=== PATIENT | female | born 1960 | race Caucasian/White ===

== ENCOUNTER 2018-10-13 05:03 | Inpatient (IN) ==
--- NOTE | 2018-09-10 13:46 | PAT Medication Instructions ---
Medication Instructions Date of Service September 10, 2018 Home Medications atorvastatin 20 mg PO PM cyclobenzaprine 10 mg PO DAILY PRN hydrocodone-acetaminophen 1 tab PO Q6H PRN metoprolol tartrate 1.5 tab PO BID multivitamin 1 tab PO QAM ranitidine HCl [Zantac] 150 mg PO HS triamterene-hydrochlorothiazid 1 tab PO QAM DO NOT take the morning of surgery cyclobenzaprine 10 mg PO DAILY PRN multivitamin 1 tab PO QAM triamterene-hydrochlorothiazid 1 tab PO QAM Take morning of surgery With a small sip of water, OTHERWISE NOTHING TO EAT OR DRINK AFTER MIDNIGHT: hydrocodone-acetaminophen 1 tab PO Q6H PRN (okay to take up to 4 hours prior to surgery if needed) metoprolol tartrate 1.5 tab PO BID Take evening before surgery atorvastatin 20 mg PO PM cyclobenzaprine 10 mg PO DAILY PRN (if needed) hydrocodone-acetaminophen 1 tab PO Q6H PRN (if needed) metoprolol tartrate 1.5 tab PO BID ranitidine HCl [Zantac] 150 mg PO HS Other Notes If you have any questions please call us at [phone] or [phone] or [phone] or [phone]
--- NOTE | 2018-09-11 09:09 | Anesthesiology Consultation ---
Date of Service September 11, 2018 Assessment & Plan (1) Encounter for pre-operative examination: Chart Review Chart Review: Acceptable Risk for Surgery and Patient seen in Pre Admission Testing Teaching & Discussion Pre-Anesthesia Teaching/Discussion Notes: Instructed NPO after midnight before surgery,except medications with 15 cc of water. Medication instructions provided according to the PAT guidelines. History Surgery Operation Date: 10/09/18 07:00 Proposed Procedures p Right Total Knee Arthroplasty - Russ Montoya MD Height/Weight Height: 5 ft 9 in Weight: 100.8 kg Allergies Allergy/AdvReac Type Severity Reaction Status Date / Time No Known Allergies Allergy Unverified 09/08/18 08:55 Medications Home Medications Medication Instructions Recorded Confirmed Last Taken atorvastatin 20 mg PO PM 09/08/18 09/08/18 Unknown cyclobenzaprine 10 mg PO DAILY PRN 09/08/18 09/08/18 Unknown hydrocodone-acetaminophen 1 tab PO Q6H PRN 09/08/18 09/08/18 Unknown metoprolol tartrate 1.5 tab PO BID 09/08/18 09/08/18 Unknown multivitamin 1 tab PO QAM 09/08/18 09/08/18 Unknown ranitidine HCl [Zantac] 150 mg PO HS 09/08/18 09/08/18 Unknown triamterene-hydrochlorothiazid 1 tab PO QAM 09/08/18 09/08/18 Unknown [Maxzide-25mg] Past Medical History Medical History History of blood transfusion 12/2017 POST OP Anemia Anxiety CKD (chronic kidney disease) STAGE III Chronic back pain Degenerative disc disease GERD (gastroesophageal reflux disease) OCCASIONAL History of palpitations Hyperlipidemia Hypertension Osteoarthritis Past Surgical History Surgical History History of appendectomy History of arthroscopy RIGHT KNEE History of cholecystectomy LAP History of colonoscopy History of lumbar fusion L4-S1 decompression/fusion= 08/10/16= Grade view 3, MAC 3, ETT [address] [facility] History of tonsillectomy and adenoidectomy History of total abdominal hysterectomy and bilateral salpingo-oophorectomy Hx of section X2 Hx of fusion of cervical spine C3-C5 Hx of laparoscopic gastric banding 2009 (S/P 50+ POUND WEIGHT LOSS) Past Anesthesia History No Hx of Anesthesia Complications and No Family Hx of Anesthesia Complications History of PONV No Motion Sickness Screening History of Motion Sickness: Yes Social History Smoking Status: Former smoker Do You Dip or Chew Tobacco: No Smoking End Date: QUIT 1997 Hx Alcohol Use: Yes alcohol intake frequency: holidays/special occasions only Hx Substance Use: No substance use type: does not use Exercise / Class Metabolic Activity II 4-5 Yardwork/Stairs/Walk up hill Review of Systems Occasional reflux. Patient denies chest pain, shortness of breath, dyspnea on exertion, cough, wheezing, palpitations. Physical Exam Vital Signs VITALS BP 131/83 P 65 TEMP 98.4 SP02 95%RA RESP 18 Full neck and c-spine range of motion. Full TMJ range of motion. TMD 3 finger breaths Mallampati Score 2 Dentition: intact, upper front cap Lungs: clear throughout to auscultation Cardiac: regular rate and rhythm, no murmurs noted, distant heart sounds Spine: normal Carotid arteries: negative bruit Extremities: no edema Testing Electrocardiogram Date: 08/13/18 SR at 60bpm. Chest X-Ray Date: 12/17/17 Findings: + NAD Echocardiogram Date: 05/30/18 EF 60-65%. No significant valvular disease. Stress Test Date: 05/16/16 Type: nuclear Myocardial perfusion imaging "normal." Myocardial ischemia/infarct absent. EF 64 %. Laboratory Results 09/11/18 09:35 09/11/18 09:35 Blood Type O Positive 09/11/18 09:35 Antibody Screen NEGATIVE 09/11/18 09:35 PT 10.4 Seconds (9.0-12.0) 09/11/18 09:35 INR 1.0 (0.9-1.1) 09/11/18 09:35 APTT 30.6 Seconds (21.0-31.0) 09/11/18 09:35 Hemoglobin A1c 6.0 % (4.5-5.6) H 09/11/18 09:35 Urine Color Dark Yellow 09/11/18 Unknown Urine Appearance Clear (Clear) 09/11/18 Unknown Urine pH 7.0 (4.5-7.5) 09/11/18 Unknown Ur Specific [place] 1.026 (1.000-1.030) 09/11/18 Unknown Urine Protein Negative (Negative) 09/11/18 Unknown Urine Glucose (UA) Negative (Negative) 09/11/18 Unknown Urine Ketones Negative (Negative) 09/11/18 Unknown Urine Nitrite Negative (Negative) 09/11/18 Unknown Ur Leukocyte Esterase Negative (Negative) 09/11/18 Unknown
[2018-09-11 10:42] LABS: Appearance Urine Clear (Clear); Bilirubin Urine Negative (Negative); Blood Urine Negative (Negative); Color Urine Dark Yellow; Glucose Urine UA Negative (Negative); Ketones Urine Negative (Negative); Leukocyte Esterase Urine Negative (Negative); Nitrite Urine Negative (Negative); Protein Urine Negative (Negative); Specific Gravity Urine 1.026 (1.000-1.030); Urobilinogen Urine Negative (Negative)
[2018-09-11 10:49] LABS: Basophils # (auto) 0.04 K/uL (0-0.2); Basophils % (auto) 0.8 %; Eosinophils % (auto) 4.2 %; Hematocrit (blood only) 40.3 % (37-47); Hemoglobin 13.6 g/dL (12.0-16.0); Immature Granulocytes # (auto) 0.01 K/uL (0.00-0.02); Immature Granulocytes % (auto) 0.2 %; Lymphocytes # (auto) 1.82 K/uL (1.2-3.4); Lymphocytes % (auto) 38.1 %; Mean Corpuscular Hgb Conc 33.7 g/dL (32-36); Mean Corpuscular Volume 90.4 fL (80-100); Mean Platelet Volume 10.3 fL (7.4-10.4); Monocytes # (auto) 0.68 K/uL (0.11-0.59); Monocytes % (auto) 14.2 %; Neutrophils # (auto) 2.03 K/uL (1.4-6.5); Neutrophils % (auto) 42.5 %; Platelet Count 198 K/uL (130-400); RDW Coefficient of Variation 13.2 % (11.5-14.5); RDW Standard Deviation 43.3 fL (36.4-46.3); Red Blood Count 4.46 M/uL (4.2-5.4); White Blood Count 4.78 K/uL (4.8-10.8)
[2018-09-11 10:59] LABS: Albumin Level 3.7 gm/dl (3.4-5.0); BUN Creatinine Ratio 21.2 (10-20); Calcium 9.7 mg/dl (8.5-10.1); Est GFR (African American) 70.2; Est GFR (Non-African American) 60.6; Potassium 3.9 mmol/L (3.5-5.1)
[2018-09-11 11:08] LABS: Partial Thromboplastin Ratio 1.2; Partial Thromboplastin Time 30.6 Seconds (21.0-31.0); Prothrombin Time 10.4 Seconds (9.0-12.0)
[2018-09-11 12:53] LABS: Estimated Average Glucose 126 mg/dl
--- NOTE | 2018-10-10 11:58 | History and Physical Report ---
DATE OF ADMISSION: 10/13/2018 CHIEF COMPLAINT: Right knee pain. HISTORY OF PRESENT ILLNESS: The patient is a 58-year-old female seen and evaluated for chronic right knee pain. She is on chronic hydrocodone for her pain. She does have other conservative care by her primary care physician and continues to have pain and disability and now desires to proceed with right total knee arthroplasty. PAST MEDICAL HISTORY: Hypertension, stage III chronic kidney disease, chronic back pain, iron deficiency anemia, gastritis, sleep apnea, obesity. PAST SURGICAL HISTORY: Appendectomy, cholecystectomy, tonsillectomy, cervical discectomy, lumbar spine fusion, hysterectomy. MEDICATIONS: Metoprolol tartrate 25 mg 1-1/2 tablets twice daily, Maxzide 37.5/25 daily, hydrocodone q. 4 hours p.r.n. pain, atorvastatin calcium 20 mg daily, Centrum Silver adult multivitamin daily, cyclobenzaprine HCL 10 mg p.r.n., vitamin D 2000 units daily, ranitidine HCL 50 mg daily. ALLERGIES: Unknown. SOCIAL HISTORY/REVIEW OF SYSTEMS: She is . She works at a desk job. Denies current alcohol, tobacco use. PHYSICAL EXAMINATION: GENERAL: Well-nourished, well-developed, obese female who appears her stated age. HEENT: Normocephalic, atraumatic, extraocular movements intact, oropharynx pink and moist. NECK: Supple without adenopathy. LUNGS: Clear to auscultation bilaterally. HEART: Regular rate and rhythm. ABDOMEN: Soft, nontender, nondistended, obese. EXTREMITIES: The upper extremity within normal limits. The right knee has a valgus alignment. She complains primarily of lateral compartment pain. Her range of motion is approximately 0-120 degrees. X-RAYS: X-rays were reviewed. She has a valgus aligned knee. She has bone on bone arthritis of the lateral compartment. She has moderate degenerative changes about the patellofemoral joint with osteophytes as well. ASSESSMENT: Right knee degenerative joint disease. PLAN: Risks versus benefits were discussed. Consent was obtained. Will proceed with right total knee arthroplasty as indicated.
[2018-10-13] MEDS ORDERED: METOCLOPRAMIDE HCL 10 MG TABLET PO SCH (06:00)
[2018-10-13] MEDS ORDERED: ACETAMINOPHEN 500 MG TAB PO SCH (06:00)
[2018-10-13] MEDS ORDERED: GABAPENTIN 300 MG x 2 PO SCH (06:00)
[2018-10-13] MEDS ORDERED: dexAMETHasone 4 MG TAB PO SCH (06:00)
[2018-10-13] MEDS ORDERED: TRANEXAMIC ACID 1,000 MG **IV Pre-op IV SCH (06:00)
[2018-10-13] MEDS ORDERED: CeleBREX 200 MG CAP PO SCH (06:00)
[2018-10-13] MEDS ORDERED: CEFAZOLIN 2000MG 2,000 MG/15 ML SYR IV SCH (06:00)
[2018-10-13] MEDS ORDERED: LR 500ML BOLUS, THEN 15ML/HR IV SCH (06:00)
[2018-10-13] MEDS ORDERED: FAMOTIDINE 20 MG TAB PO SCH (06:00)
[2018-10-13] MEDS ORDERED: ORTHO JOINT ANESTHETIC ONE (06:26)
[2018-10-13] MEDS ORDERED: POVIDONE-IODINE OP SOLN 30 ML BTL ONE (06:26)
[2018-10-13] MEDS ORDERED: BACITRACIN INJ 50,000 UNIT VIAL ONE (06:26)
[2018-10-13] MEDS ORDERED: ROPIVACAINE 0.5% 5 MG/ML 30 ML VIAL ONE (06:28)
[2018-10-13] MEDS ORDERED: BUPIVACAINE 0.5 % 5 MG/1 ML PF 10ML VIAL ONE (06:28)
[2018-10-13] MEDS ORDERED: TRANEXAMIC ACID 1,000 MG **IV Intra-op IV SCH (06:30)
[2018-10-13] MEDS ORDERED: PHENYLEPHRINE 100MCG/ML 5ML SYR IV PRN (06:45)
[2018-10-13] MEDS ORDERED: fentaNYL citrate 100 MCG/2 ML VIAL ONE (06:45)
[2018-10-13] MEDS ORDERED: fentaNYL citrate 100 MCG/2 ML VIAL IV PRN (06:45)
[2018-10-13] MEDS ORDERED: ePHEDrine sulfate 50 MG/ML AMP IV PRN (06:45)
[2018-10-13] MEDS ORDERED: PROMETHAZINE HCL 12.5 MG in SODIUM CHLORIDE 0.9% 50 ML IV PRN (06:45)
[2018-10-13] MEDS ORDERED: HYDROmorphone INJ 1 MG/ML SYRINGE IV PRN ×2 (06:45→10:32)
[2018-10-13] MEDS ORDERED: MIDAZOLAM HCL 1 MG/ML 2ML VIAL ONE ×2 (06:45→07:38)
[2018-10-13] MEDS ORDERED: ONDANSETRON INJ 2 MG/ML 2 ML VIAL IV PRN ×2 (06:45→10:32)
[2018-10-13] MEDS ORDERED: ATROPINE SULFATE 0.1 MG/ML 10ML SYR IV PRN (06:45)
[2018-10-13] MEDS ORDERED: ACETAMINOPHEN 1,000 MG/100 ML VIAL IV ONE (06:45)
[2018-10-13] MEDS ORDERED: EPINEPHrine INJ 1 MG/ML AMP ONE (07:01)
--- NOTE | 2018-10-13 07:07 | History & Physical Bridge Note ---
Date of Service October 13, 2018 History & Physical Bridge Note I have examined the patient, reviewed the History & Physical and in the interval since the performance of the History & Physical I have noted the following changes of clinical significance: no changes noted
[2018-10-13] MEDS: ROPIVACAINE 0.5% HCL/PF 150 MG, BUPIVACAINE 0.5% MPF 30 ML, EPINEPHrine 30MG/30ML (OR U... INFIL SCH ×2 (07:56→08:36)
[2018-10-13] MEDS ORDERED: ONDANSETRON INJ 2 MG/ML 2 ML VIAL ONE (08:02)
[2018-10-13] MEDS ORDERED: PROPOFOL IV EMULSION 10 MG/ML 20 ML VIAL IV ONE (08:02)
[2018-10-13] MEDS ORDERED: LIDOCAINE HCL 2% 2 ML VIAL/AMP(20MG/ML) INFIL ONE (08:02)
[2018-10-13] MEDS ORDERED: DEXAMETHASONE SOD INJ 4 MG/ML VIAL ONE (08:02)
--- NOTE | 2018-10-13 08:30 | Operative Report ---
Post Operative Report Pre & Post Diagnosis Operation Date: 10/13/18 07:00 Pre-Op Diagnosis: Right Knee Osteoarthritis Post-Op Diagnosis: Right Knee Osteoarthritis Procedure Operation Date: 10/13/18 07:00 Actual Procedures p Right Total Knee Arthroplasty(Right) - Russ Montoya MD Surgeon Russ Montoya MD Vocational Rehabilitation Teacher Franca Estimated Blood Loss 10 Findings Consistent with Post-Op Diagnosis Specimens Bone fragments Complications none Disposition Accompanied Patient To Recovery: No Disposition: Recovery Room Indications Knee pain Description of Procedure The patient's right leg was prepped and draped in the usual sterile manner. The limb was exsanguinated with an Esmarch bandage and tourniquet was inflated to 325 mmHg. Longitudinal incision made subcutaneous tissue was sharply dissected electrocautery used for hemostasis. Medium parapatellar incision was made the patella was everted and the knee was flexed. The medial face the tibia was with electrocautery and the proximal tibia was osteotomized in the oscillating saw. Next was turned to the distal femur where a drill was used to gain access to the femoral canal. Intramedullary alignment guide was placed in the distal femur was cut. A size 5 femoral component was chosen size to be used. The chamfer cuts were made to the notch was cut and after removal of all excess of meniscal tissue the trial femur was impacted in position. Blunt Hohmann was used to present the tibia. Size 4 tibial component was chosen. The proximal tibia was prepared in the trial tibia was placed. A size 16 poly-was chosen. Next the patella was reamed to a size 36 patella was chosen. The knee was taken through full range of motion and the patella tracked nicely all trials were removed the knee was thoroughly irrigated joint mix was injected cement was mixed and the final components were cemented in position. Knee was held in extension while cement hardened. The extensor mechanism was closed after utilizing a Betadine soap over Hemovac drain. Retention tissue was closed using 0 Dexon and the skin was closed was applied. Sterile dressing of Adaptic 4 x 4's sterile web roll was APPLIED. Cortez was utilized to all portions of the procedure including prepping draping surgical assistance wound closure and dressing application. I attest to the content of the Intraoperative Record and any orders documented therein. Any exceptions are noted below.
[2018-10-13] MEDS ORDERED: ROPIVACAINE/NSS 0.2% 250 ML PUMP INFIL PRN (09:15)
--- NOTE | 2018-10-13 10:24 | XRay Report ---
XR knee RT 2V routine CLINICAL HISTORY: post-op joint replacement COMPARISON: None. DISCUSSION: Anatomic alignment post total right knee arthroplasty. Good contact between prosthetic an d underlying bone. Expected postoperative soft tissue change IMPRESSION: Anatomic alignment post total right knee arthroplasty. The above report was generated using voice recognition software. It may contain grammatical, syntax or spelling errors. Electronically signed by: Uri Earl M.D. 10/13/2018 10:22 AM
--- NOTE | 2018-10-13 10:27 | Anesthesiology Progress Note ---
Date of Service October 13, 2018 Anesthesia Post Procedure Vital Signs Vital Signs: Temp Pulse Pulse Resp BP Pulse Ox 10/13/18 10:20 72 14 106/64 98 10/13/18 10:10 36.4 C L 62 12 110/59 L 99 10/13/18 10:00 65 16 112/62 100 10/13/18 09:50 64 12 106/55 L 100 10/13/18 09:40 61 14 111/61 100 10/13/18 09:30 61 12 113/55 L 100 10/13/18 09:20 63 12 107/61 100 10/13/18 09:10 69 14 112/61 100 10/13/18 09:03 36.3 C L 72 17 110/55 L 100 10/13/18 05:44 37 C 78 20 160/95 H 95 Notes Mental Status: alert / awake / arousable Patient Amnestic to Procedure: Yes Nausea / Vomiting: adequately controlled Pain: adequately controlled Airway Patency, RR, SpO2: stable & adequate BP & HR: stable & adequate Hydration State: stable & adequate Neuraxial Anesthesia: was administered and sensory block is resolving Anesthetic Complications: no major complications apparent and Pt Satisfied with anesthetic care Notes: The patient has a femoral nerve catheter with a pain pump attached. She feels well.
[2018-10-13] MEDS ORDERED: NALOXONE HCL 0.4 MG/1 ML VIAL/CARP IV PRN (10:32)
[2018-10-13] MEDS ORDERED: MAGNESIUM HYDROXIDE SUSP 30 ML UDC PO PRN (10:32)
[2018-10-13] MEDS ORDERED: METOCLOPRAMIDE HCL INJ 5 MG/ML 2 ML VIAL IV PRN (10:32)
[2018-10-13] MEDS ORDERED: ALUMINUM/MAGNESIUM SUSP 30 ML UDC PO PRN (10:32)
[2018-10-13] MEDS ORDERED: BISACODYL 10 MG SUPP PR PRN (10:32)
[2018-10-13] MEDS: SODIUM CHLORIDE 0.9% 1000ML 1,000 ML IV SCH ×2 (11:11→20:21)
[2018-10-13] MEDS: ACETAMINOPHEN 500 MG TAB PO SCH ×2 (13:14→22:16)
[2018-10-13] MEDS: OXYCODONE HCL IR 5 MG TAB (IMMEDIATE RELEASE) PO PRN ×2 (13:15→22:16)
[2018-10-13] MEDS: CEFAZOLIN 2000MG 2,000 MG/15 ML SYR IV SCH (15:12)
[2018-10-13] MEDS: FERROUS GLUCONATE 324 MG TAB PO SCH (16:35)
[2018-10-13] MEDS: ASCORBIC ACID 500 MG TAB PO SCH (16:35)
[2018-10-13] MEDS: ATORVASTATIN 20 MG TAB PO SCH (20:17)
[2018-10-13] MEDS: ASPIRIN 81 MG ECTAB PO SCH (20:17)
[2018-10-13] MEDS: DOCUSATE SODIUM 100 MG CAP PO SCH (20:18)
[2018-10-13] MEDS: METOPROLOL TARTRATE 25 MG TAB PO SCH (20:18)
[2018-10-13] MEDS: SENNA 8.6 MG TAB PO SCH (20:18)
[2018-10-14] MEDS: CEFAZOLIN 2000MG 2,000 MG/15 ML SYR IV SCH (00:11)
[2018-10-14] MEDS: OXYCODONE HCL IR 5 MG TAB (IMMEDIATE RELEASE) PO PRN ×5 (03:01→23:23)
[2018-10-14 06:16] LABS: Hematocrit (blood only) 29.6 % (37-47); Mean Corpuscular Hgb Conc 33.8 g/dL (32-36); Mean Corpuscular Volume 88.6 fL (80-100); Mean Platelet Volume 9.2 fL (7.4-10.4); Platelet Count 193 K/uL (130-400); RDW Standard Deviation 42.3 fL (36.4-46.3); Red Blood Count 3.34 M/uL (4.2-5.4); White Blood Count 16.22 K/uL (4.8-10.8)
[2018-10-14] MEDS: ACETAMINOPHEN 500 MG TAB PO SCH ×3 (06:27→22:19)
[2018-10-14 06:44] LABS: BUN Creatinine Ratio 20.4 (10-20); Calcium 8.2 mg/dl (8.5-10.1); Creatinine Clr Calc Pharmacy 61.3 ml/min; Est GFR (African American) 53.9; Est GFR (Non-African American) 46.5
--- NOTE | 2018-10-14 07:44 | Orthopedic Progress Note ---
Date of Service October 14, 2018 Assessment & Plan (1) Status post right knee replacement: 58 yo female stable POD #1 s/p right TKA, elevated BUN/Cr(CKD), h/o pain management issues 1. Med management 2. DVT prophylaxis- ASA, SCDs 3. PT/OT 4. D/C planning- home w/ HH Subjective Pt resting in bed, pain controlled, denies complaints Physical Exam Vital Signs (Past 24 Hours): Last Vital Signs Temp 36.9 C 10/14/18 07:35 Pulse 67 10/14/18 07:35 Resp 16 10/14/18 07:35 BP 124/74 10/14/18 07:35 Pulse Ox 99 10/14/18 07:35 Physical Exam: Dressing/drain in place, toes mobile, femoral pain catheter in place Results & Data Laboratory Results 10/14/18 10/14/18 10/14/18 Range/Units 05:56 05:56 05:56 WBC 16.22 H (4.8-10.8) K/uL RBC 3.34 L (4.2-5.4) M/uL Hgb 10.0 L (12.0-16.0) g/dL Hct 29.6 L (37-47) % MCV 88.6 (80-100) fL MCH 29.9 (25-34) pg MCHC 33.8 (32-36) g/dL RDW Std Deviation 42.3 (36.4-46.3) fL RDW Coeff of Atilio 13.0 (11.5-14.5) % Plt Count 193 (130-400) K/uL MPV 9.2 (7.4-10.4) fL Sodium 139 (136-145) mmol/L Potassium 4.0 (3.5-5.1) mmol/L Chloride 108 H (98-107) mmol/L Carbon Dioxide 20 L (21-32) mmol/L Anion Gap 11.0 (3-11) BUN 26 H (7-18) mg/dl Creatinine 1.27 H (0.6-1.2) mg/dl Est Cr Clr Drug Dosing 61.3 ml/min Est GFR ( Amer) 53.9 Est GFR (Non-Af Amer) 46.5 BUN/Creatinine Ratio 20.4 H (10-20) Glucose 122 H (70-99) mg/dl Calcium 8.2 L (8.5-10.1) mg/dl Hepatitis C Ab Screen Pending
--- NOTE | 2018-10-14 07:56 | Anesthesiology Progress Note ---
Date of Service October 14, 2018 Anesthesia Post Procedure Vital Signs Vital Signs: Temp Pulse Pulse Pulse Pulse Resp BP 10/14/18 07:35 36.9 C 67 16 124/74 10/14/18 03:23 36.8 C 70 16 128/87 10/13/18 23:42 37.0 C 72 14 126/71 10/13/18 20:16 82 115/74 10/13/18 19:29 36.9 C 99 H 18 129/85 10/13/18 15:23 37 C 73 18 110/72 10/13/18 13:38 75 18 113/74 10/13/18 12:28 36.4 C L 69 18 113/74 10/13/18 11:28 36.3 C L 60 15 111/66 10/13/18 11:06 36.6 C 62 17 95/72 L 10/13/18 10:32 36.4 C L 64 16 110/71 10/13/18 10:20 72 14 106/64 10/13/18 10:10 36.4 C L 62 12 110/59 L 10/13/18 10:00 65 16 112/62 10/13/18 09:50 64 12 106/55 L 10/13/18 09:40 61 14 111/61 10/13/18 09:30 61 12 113/55 L 10/13/18 09:20 63 12 107/61 10/13/18 09:10 69 14 112/61 10/13/18 09:03 36.3 C L 72 17 110/55 L Pulse Ox 10/14/18 07:35 99 10/14/18 03:23 99 10/13/18 23:42 95 10/13/18 20:16 10/13/18 19:29 96 10/13/18 15:23 93 10/13/18 13:38 95 10/13/18 12:28 100 10/13/18 11:28 100 10/13/18 11:06 99 10/13/18 10:32 99 10/13/18 10:20 98 10/13/18 10:10 99 10/13/18 10:00 100 10/13/18 09:50 100 10/13/18 09:40 100 10/13/18 09:30 100 10/13/18 09:20 100 10/13/18 09:10 100 10/13/18 09:03 100 Notes Mental Status: alert / awake / arousable Patient Amnestic to Procedure: Yes Nausea / Vomiting: adequately controlled Pain: adequately controlled Airway Patency, RR, SpO2: stable & adequate BP & HR: stable & adequate Hydration State: stable & adequate Neuraxial Anesthesia: was administered and sensory block resolved Anesthetic Complications: no major complications apparent and Pt Satisfied with anesthetic care Notes: The patient had a R femoral nerve catheter placed prior to surgery due to her chronic opioid use. She had very good pain relief overnight and pushed for a bolus through the catheter several times. She continues to have some numbness and weakness over the top part of her knee secondary to the continous nerve block. I spoke to Bryon Schulte who would like to how the patient's pain tolerance would be without the femoral nerve catheter since she will be discharged to home tomorrow. I spoke to the patient about leaving it in until 1600 today, but she stated that she would like the catheter to be removed now so that she can see what her pain tolerance is and to regain motor function. The catheter was removed with tip intact. The insertion site had some minimal bruising where the needle was inserted but no redness, swelling, or bleeding. The patient is doing well.
[2018-10-14] MEDS ORDERED: dexAMETHasone 10 MG in SYRINGE 0 ML IV SCH (08:00)
[2018-10-14] MEDS: FERROUS GLUCONATE 324 MG TAB PO SCH ×2 (08:21→17:40)
[2018-10-14] MEDS: ASCORBIC ACID 500 MG TAB PO SCH ×2 (08:21→17:40)
[2018-10-14] MEDS: METOPROLOL TARTRATE 25 MG TAB PO SCH ×2 (08:22→20:20)
[2018-10-14] MEDS: ASPIRIN 81 MG ECTAB PO SCH ×2 (08:22→20:20)
[2018-10-14] MEDS: TRIAMTERENE/HCTZ 37.5/25MG TAB PO SCH (08:22)
[2018-10-14] MEDS: MULTIVITAMIN TAB PO SCH (08:22)
[2018-10-14] MEDS: DOCUSATE SODIUM 100 MG CAP PO SCH ×2 (08:23→20:21)
[2018-10-14] MEDS ORDERED: NON-FORMULARY MEDICATION (Multivitamin 1 TAB) PO SCH (09:00)
--- NOTE | 2018-10-14 09:31 | Anesthesiology Progress Note ---
Date of Service October 14, 2018 Pain control adequately controlled with femoral cath. Janak LANGSTON requesting dc of catheter. Dr. Abelardo Ugarte notified, into see patient. Anesthesia Post Procedure Vital Signs Vital Signs: Temp Pulse Pulse Pulse Pulse Resp BP 10/14/18 07:35 36.9 C 67 16 124/74 10/14/18 03:23 36.8 C 70 16 128/87 10/13/18 23:42 37.0 C 72 14 126/71 10/13/18 20:16 82 115/74 10/13/18 19:29 36.9 C 99 H 18 129/85 10/13/18 15:23 37 C 73 18 110/72 10/13/18 13:38 75 18 113/74 10/13/18 12:28 36.4 C L 69 18 113/74 10/13/18 11:28 36.3 C L 60 15 111/66 10/13/18 11:06 36.6 C 62 17 95/72 L 10/13/18 10:32 36.4 C L 64 16 110/71 10/13/18 10:20 72 14 106/64 10/13/18 10:10 36.4 C L 62 12 110/59 L 10/13/18 10:00 65 16 112/62 10/13/18 09:50 64 12 106/55 L 10/13/18 09:40 61 14 111/61 Pulse Ox 10/14/18 07:35 99 10/14/18 03:23 99 10/13/18 23:42 95 10/13/18 20:16 10/13/18 19:29 96 10/13/18 15:23 93 10/13/18 13:38 95 10/13/18 12:28 100 10/13/18 11:28 100 10/13/18 11:06 99 10/13/18 10:32 99 10/13/18 10:20 98 10/13/18 10:10 99 10/13/18 10:00 100 10/13/18 09:50 100 10/13/18 09:40 100 Notes Mental Status: alert / awake / arousable and participated in evaluation Patient Amnestic to Procedure: Yes Nausea / Vomiting: adequately controlled Pain: adequately controlled Airway Patency, RR, SpO2: stable & adequate Hydration State: stable & adequate Neuraxial Anesthesia: was administered and sensory block is resolving Anesthetic Complications: no major complications apparent and Pt Satisfied with anesthetic care
[2018-10-14] MEDS: SENNA 8.6 MG TAB PO SCH (20:20)
[2018-10-14] MEDS: ATORVASTATIN 20 MG TAB PO SCH (20:21)
[2018-10-15] MEDS: OXYCODONE HCL IR 5 MG TAB (IMMEDIATE RELEASE) PO PRN ×3 (03:55→11:23)
[2018-10-15] MEDS: ACETAMINOPHEN 500 MG TAB PO SCH (05:44)
--- NOTE | 2018-10-15 07:22 | Orthopedic Progress Note ---
Date of Service October 15, 2018 Assessment & Plan (1) Status post right knee replacement: 58 yo female stable POD #2 s/p right TKA, h/o pain management issues 1. Med management 2. DVT prophylaxis- ASA, SCDs 3. PT/OT 4. D/C planning- home w/ HH Subjective Pt resting in bed, pain reasonably well controlled, denies complaints Physical Exam Vital Signs (Past 24 Hours): Last Vital Signs Temp 36.7 C 10/14/18 23:16 Pulse 65 10/14/18 23:16 Resp 16 10/14/18 23:16 BP 119/73 10/14/18 23:16 Pulse Ox 95 10/14/18 23:16 Physical Exam: Toes mobile, N/V/I, Silverlon dressing in place
[2018-10-15] MEDS: DOCUSATE SODIUM 100 MG CAP PO SCH (08:34)
[2018-10-15] MEDS: FERROUS GLUCONATE 324 MG TAB PO SCH (08:34)
[2018-10-15] MEDS: METOPROLOL TARTRATE 25 MG TAB PO SCH (08:34)
[2018-10-15] MEDS: MULTIVITAMIN TAB PO SCH (08:35)
[2018-10-15] MEDS: ASCORBIC ACID 500 MG TAB PO SCH (08:35)
[2018-10-15] MEDS: TRIAMTERENE/HCTZ 37.5/25MG TAB PO SCH (08:35)
[2018-10-15] MEDS: ASPIRIN 81 MG ECTAB PO SCH (08:35)
[2018-10-15] MEDS ORDERED: [UNRECOGNIZED DRUG - REMARK] ONE (09:30)
--- NOTE | 2018-10-22 09:55 | Discharge Summary ---
CHIEF COMPLAINT: Right knee pain. Please see complete history and physical examination. HOSPITAL COURSE: The patient underwent right total knee arthroplasty without complication. She tolerated the procedure well and discharged to recovery room in stable condition. Her postoperative pain was reasonably well controlled with a combination of spinal anesthesia, adductor canal block, intraoperative joint injection, IV, and oral pain medications. She was started on aspirin for DVT prophylaxis. She also utilized MINERVA stockings and SCDs for additional prophylaxis. Her H&H was stable and did not require transfusion. Her surgical drain was discontinued prior to discharge and her surgical dressing was changed and will remain in place for approximately 7 days postoperative. She tolerated postoperative physical therapy reasonably well. She was ambulating and bending her knee appropriately. She was discharged home on postop day 2. She will continue her physical therapy at home. She will continue her aspirin for DVT prophylaxis and follow up in our office in approximately 10-14 days for initial postop evaluation.
== END 2018-10-15 12:11 | disposition home health service (06) | DRG 470 ==
LOC: ASU 05:03 → 3E 09:12
DX: K21.9 Gastro-esophageal reflux disease without esophagitis; Z98.1 Arthrodesis status; M21.061 Valgus deformity, not elsewhere classified, right knee; Z68.33 Body mass index [BMI] 33.0-33.9, adult; M17.11 Unilateral primary osteoarthritis, right knee; D50.9 Iron deficiency anemia, unspecified; M54.9 Dorsalgia, unspecified; G89.29 Other chronic pain; I12.9 Hypertensive chronic kidney disease with stage 1 through stage 4 chronic kidney disease, or unspecified chronic kidney disease; N18.3 Chronic kidney disease, stage 3 (moderate); Z87.891 Personal history of nicotine dependence; Z79.899 Other long term (current) drug therapy; E66.9 Obesity, unspecified; G47.30 Sleep apnea, unspecified; E78.5 Hyperlipidemia, unspecified